=== PATIENT | female | born 1990 | race Caucasian/White ===

== ENCOUNTER 2019-12-29 13:50 | Outpatient (CLI) | payer BC, SELFPAY ==
[2019-12-29 14:24] LABS: Basophils # 0.1 10^3/uL (0.0-0.1); Eosinophils # 0.4 10^3/uL (0.0-0.8); Eosinophils % 4.7 %; Hematocrit 43.2 % (37.0-47.0); Hemoglobin 14.1 g/dL (11.5-15.3); Lymphocytes % 37.8 %; Mean Corpuscular HGB Conc 32.6 g/dL (30.0-36.0); Mean Corpuscular Hemoglobin 31.1 pg (28.0-34.0); Mean Corpuscular Volume 95.2 fL (81-99); Mean Platelet Volume 10.4 fL (7.4-10.4); Monocytes # 0.4 10^3/uL (0.2-0.9); Monocytes % 4.6 %; Neutrophils # 4.1 10^3/uL (1.8-7.7); Neutrophils % 51.8 %; Nucleated Red Blood Cells % 0 %; Platelet Count 277 10^3/cmm (130-400); Red Blood Count 4.54 10^6/uL (4.1-5.3); Red Cell Distribution Width 12.5 % (12.1-15.1); White Blood Count 7.8 10^3/uL (4.0-10.0)
[2019-12-29 14:49] LABS: Alanine Aminotransferase 19 U/L (0-33); Albumin Level 4.4 g/dL (3.5-5.2); Alkaline Phosphatase 68 IU/L (35-105); Amylase 35 U/L (28-100); Anion Gap 16.6 (5-19); Aspartate Amino Transferase 22 U/L (0-32); Blood Urea Nitrogen 12 mg/dL (6-20); Calcium 10.6 mg/dL (8.5-10.5); Carbon Dioxide 25 mmol/L (22-29); Chloride 103 mmol/L (98-107); Chol HDL Ratio 3.46 mg/dL (0.0-4.40); Cholesterol 204 mg/dL (0-200); Free T4 Free Thyroxine 1.05 ng/dL (0.82-1.77); Globulin 3.4 g/dL (1.3-4.6); Glomerular Filtration Rate 74.6 mL/min (90-130); Glucose 89 mg/dL (65-115); HDL Cholesterol 59 mg/dL (60-100); LDL Cholesterol Calculated 127 mg/dL (50-129); LDL HDL Ratio 2.15 RATIO (0.00-3.22); Lipase 12 U/L (13-60); Potassium 4.6 mmol/L (3.5-5.1); Sodium 140 mmol/L (136-145); T3 Free 3.1 PG/ML (2.0-4.4); Thyroid Stimulating Hormone 2.66 uIU/mL (0.27-4.20); Total Bilirubin 0.3 mg/dL (0.15-1.2); Total Protein 7.8 g/dL (6.6-8.7); Triglycerides 88 mg/dL (0-150)
[2019-12-29 14:54] LABS: 25 Hydroxy Vitamin D 32 ng/mL (30-100)
[2019-12-29 18:31] LABS: Estmated Average Glucose 103; Hemoglobin A1C 5.2 % (4.0-6.0)
== END 2019-12-29 13:51 | disposition home or self-care (01) ==
LOC: LAB 13:53
PROVIDERS: Family Provider Nurse Practitioner Family; PCP Nurse Practitioner Family; Visit Provider Nurse Practitioner Family
DX: R10.9 Unspecified abdominal pain (principal); E03.9 Hypothyroidism, unspecified; E55.9 Vitamin D deficiency, unspecified; E78.2 Mixed hyperlipidemia; Z79.899 Other long term (current) drug therapy
CPT/HCPCS: 80053; 80061; 82150; 82306; 83036; 83690; 84439; 84443; 84481; 85025

== ENCOUNTER 2020-01-17 15:15 | Outpatient (CLI) | payer BC, SELFPAY ==
--- NOTE | 2020-01-17 15:00 | US_ITS ---
WS: [id number] Complete ABDOMINAL ULTRASOUND HISTORY: abdominal pain COMPARISON: None available. Liver: 16.6 cm in length. Normal size liver. Increased attenuation and mild heterogeneity throughout the liver from hepatic steatosis. No mass or bile duct dilatation. Gallbladder: Normally distended with no gallstones, wall thickening or pericholecystic fluid. Gallbladder wall thickness: 2.0 cm. Pancreas: Normal size and echogenicity. CBD: 3.4 cm. Right kidney: 10.8 cm x 5.3 cm x 4.5 cm. No mass, cortical thickening or hydronephrosis. Left kidney: 12.0 cm x 6.0 cm x 6.0 cm. No mass, cortical thickening or hydronephrosis. Spleen: Normal size and echogenicity. Abdominal aorta and IVC are within normal limits. No ascites. US/US abdomen complete* [id number] IMPRESSION: 1. Mild hepatic steatosis. 2. Normal gallbladder.
== END 2020-01-17 15:16 | disposition home or self-care (01) ==
LOC: RAD 15:17
PROVIDERS: Family Provider Nurse Practitioner Family; PCP Nurse Practitioner Family; Visit Provider Nurse Practitioner Family
DX: K76.0 Fatty (change of) liver, not elsewhere classified (principal); R10.12 Left upper quadrant pain
CPT/HCPCS: 76700

== ENCOUNTER → 2020-03-13 13:20 | Outpatient (BNVA) | payer BC, SELFPAY | PROVIDERS: Family Provider Nurse Practitioner Family; PCP Nurse Practitioner Family; Visit Provider Nurse Practitioner Family | DX: R10.9 Unspecified abdominal pain (principal); R53.83 Other fatigue; W46.1XXA Contact with contaminated hypodermic needle, initial encounter | CPT/HCPCS: 80053; 82150; 83690; 84439; 84443; 84481; 86803; 87806 ==

== ENCOUNTER 2020-04-26 12:27 | Outpatient (CLI) | payer BC, SELFPAY ==
[2020-04-26 14:20] LABS: Hepatitis C Virus Antibody Non-Reactive (Nonreactive)
== END 2020-04-26 12:28 | disposition home or self-care (01) ==
LOC: LAB 12:31
PROVIDERS: Family Provider Nurse Practitioner Family; PCP Nurse Practitioner Family; Visit Provider Nurse Practitioner Family
DX: R10.9 Unspecified abdominal pain (principal); R53.83 Other fatigue
CPT/HCPCS: 86803

== ENCOUNTER 2020-05-27 13:01 | Outpatient (CLI) | payer BC, SELFPAY ==
[2020-05-27] MEDS: iohexol 300 mg/mL 50 mL Btl PO (14:23)
--- NOTE | 2020-05-27 15:00 | CT_ITS ---
WS: [id number] CT ABDOMEN PELVIS TECHNIQUE: Contrast-enhanced CT of the abdomen and pelvis with coronal and sagittal reformatted image s. CLINICAL INFORMATION: abdominal pain COMPARISON: None. DLP: 1213.[address] scans at [facility] use at least one of these dose optimization techniques: automat ed exposure control; mA and/or kV adjustment per patient size (includes targeted exams where dose is matched to clinical indication); or iterative reconstruction. FINDINGS: Diffuse fatty infiltration liver. Gallbladder is normal. Normal spleen. Adrenal glands are normal. N ormal renal parenchymal enhancement. Lung bases are well aerated. Visualized pancreas is normal. Norm al visualized gallbladder. Normal portal vein and splenic vein. Normal caliber abdominal aorta. Normal sigmoid colon. No evidence of small or large bowel obstruction. Incidental fat-containing umbi lical hernia. No abdominal or pelvic lymphadenopathy. No inguinal lymphadenopathy. Prominent bilatera l ovarian cysts bilaterally measuring 3.1cm on the left and 2.6cm on the right. This can be followed up with ultrasound. No free fluid in the pelvis. M ild disc space narrowing L5-S1. CT/CT abdomen pelvis w con* [id number] IMPRESSION: 1. Mild diffuse fatty infiltration of the liver. Normal appearing gallbladder. 2. No hydronephrosis. Normal renal parenchymal enhancement. 3. Bilateral ovarian cysts measuring 3.1cm on the left and 2.6cm right. This c an be followed up with ultrasound. 4. No free fluid in the pelvis. 5. No other significant findings.
[2020-05-27] MEDS: iohexol 300 mg/mL 100 mL Btl IV (15:01)
== END 2020-05-27 13:02 | disposition home or self-care (01) ==
LOC: RADWPI 13:04
PROVIDERS: Family Provider Nurse Practitioner Family; PCP Nurse Practitioner Family; Visit Provider Nurse Practitioner Family
DX: R10.9 Unspecified abdominal pain (principal); K76.0 Fatty (change of) liver, not elsewhere classified; N83.202 Unspecified ovarian cyst, left side; N83.201 Unspecified ovarian cyst, right side
CPT/HCPCS: 74177; Q9967

== ENCOUNTER → 2020-12-04 08:35 | Outpatient (BNVA) | payer BC, SELFPAY | PROVIDERS: Family Provider Nurse Practitioner Family; PCP Nurse Practitioner Family; Visit Provider Internal Medicine Rheumatology | DX: M54.89 Other dorsalgia (principal); M25.50 Pain in unspecified joint; Z79.899 Other long term (current) drug therapy; M51.36 Other intervertebral disc degeneration, lumbar region; R21 Rash and other nonspecific skin eruption; Z84.0 Family history of diseases of the skin and subcutaneous tissue; Z82.69 Family history of other diseases of the musculoskeletal system and connective tissue | CPT/HCPCS: 36415; 80076; 82306; 82565; 85025; 85651; 86038; 86140; 86431; 86812; 99214 ==

== ENCOUNTER 2020-12-12 15:13 | Outpatient (CLI) | payer BC, SELFPAY ==
--- NOTE | 2020-12-12 15:23 | XR_ITS ---
WS: [id number] PELVIS TECHNIQUE: 1 view(s) of the pelvis CLINICAL INFORMATION: M19.90 - Unspecified osteoarthritis, unspecified site COMPARISON: None. FINDINGS: Visualized hips are normal in appearance. Normal acetabulum. Lower lumbar spine is normal. Inferior a nd superior pubic rami are normal. Normal iliopectineal line. Sacrum is normal in appearance. XR/XR pelvis 1-2V* [id number] IMPRESSION: Normal pelvis.
== END 2020-12-12 15:14 | disposition home or self-care (01) ==
LOC: RADWPI 15:20
PROVIDERS: PCP Nurse Practitioner Family; Visit Provider Internal Medicine Rheumatology
DX: M19.90 Unspecified osteoarthritis, unspecified site (principal)
CPT/HCPCS: 72170

== ENCOUNTER → 2021-01-14 08:51 | Outpatient (BNVA) | payer BC, SELFPAY | PROVIDERS: PCP Nurse Practitioner Family; Visit Provider Nurse Practitioner Family | DX: Z20.822 Contact with and (suspected) exposure to COVID-19 (principal) | CPT/HCPCS: 87635 ==

== ENCOUNTER → 2021-04-09 15:01 | Outpatient (BNVA) | payer BC, SELFPAY | PROVIDERS: PCP Nurse Practitioner Family; Visit Provider Internal Medicine Rheumatology | DX: M12.80 Other specific arthropathies, not elsewhere classified, unspecified site (principal); M45.9 Ankylosing spondylitis of unspecified sites in spine; Z79.899 Other long term (current) drug therapy | CPT/HCPCS: 99214 ==

== ENCOUNTER → 2021-07-01 14:52 | Outpatient (BNVA) | payer BC, SELFPAY | PROVIDERS: PCP Nurse Practitioner Family; Visit Provider Internal Medicine Rheumatology | DX: M45.9 Ankylosing spondylitis of unspecified sites in spine (principal); M12.80 Other specific arthropathies, not elsewhere classified, unspecified site; M46.1 Sacroiliitis, not elsewhere classified; Z79.899 Other long term (current) drug therapy; Z71.89 Other specified counseling | CPT/HCPCS: 99214 ==

== ENCOUNTER 2025-01-24 20:00 | Outpatient (CLI) | payer BC, SELFPAY | END 2025-01-24 20:01 | disposition home or self-care (01) | LOC: SLEEP 23:25 | PROVIDERS: PCP Physician Assistant; Visit Provider Physician Assistant | DX: G47.33 Obstructive sleep apnea (adult) (pediatric) (principal) | CPT/HCPCS: 95810 ==